=== PATIENT | female | born 1985 | race American Indian/Alaskan Native ===

== ENCOUNTER 2022-05-09 12:57 | Emergency (ER) | payer SELFPAY | END 2022-05-09 13:30 | disposition left against medical advice (07) | LOC: ED 12:57 | DX: F41.9 Anxiety disorder, unspecified (principal); Z53.21 Procedure and treatment not carried out due to patient leaving prior to being seen by health care provider ==

== ENCOUNTER 2022-05-10 02:11 | Emergency (ER) | payer SELFPAY ==
[2022-05-10] MEDS ORDERED: clonazePAM 0.5 MG TAB PO ONE (03:52)
--- NOTE | 2022-05-10 04:39 | Emergency Department Report ---
ED Anxiety HPI - General Chief Complaint: Anxiety Stated Complaint: MENTAL HEALTH EVAL Time Seen by Provider: 05/10/22 02:51 Source: patient Mode of arrival: Ambulatory - History of Present Illness Initial Comments: 36-year-old black female with a past medical history of scleroderma, Raynaud's disease, and asthma presents to the emergency department for evaluation of anxiety. She states that just prior to arrival, she started to feel very anxious and started to have dizziness, shortness of breath, chest pain, and the feeling of her heart racing. She states that she has had same symptoms several times over the last few days secondary to an unstable living arrangement. She denies SI and HI. She states that she has taken medications in the past for anxiety but does not have any medications at this time. MD Complaint: anxiety, heart racing, shortness of breath -: Sudden Symptoms: dyspnea, chest pain, palpitations Place: home Previous History of Same: Yes Severity: moderate Quality: constant Provoking factors: emotional stress Associated symptoms: chest pain, shortness of breath, palpitations. denies: diaphoresis, confusion, cough, fever/chills, headaches, anorexia, malaise, nausea/vomiting, rash, seizure, syncope, weakness - Related Data Home Medications: Previous Rx's Medication Instructions Recorded Last Taken Type clonazePAM [ Klonopin] 0.5 mg PO BID PRN #12 tab 05/10/22 Unknown Rx Allergies/Adverse Reactions: Allergies Allergy/AdvReac Type Severity Reaction Status Date / Time cortisone Allergy Unknown Verified 05/10/22 03:23 ED Review of Systems ROS: Stated complaint: MENTAL HEALTH EVAL Other details as noted in HPI Comment: All other systems reviewed and negative Constitutional: denies: chills, fever, weakness Respiratory: shortness of breath Cardiovascular: chest pain, palpitations. denies: dyspnea on exertion, orthopnea, edema, syncope, paroxysmal nocturnal dyspnea Gastrointestinal: denies: abdominal pain, nausea, vomiting Musculoskeletal: denies: back pain Psychiatric: anxiety. denies: homicidal thoughts, suicidal thoughts ED Past Medical Hx - Past Medical History Previous Medical History?: Yes Hx Asthma: Yes Additional medical history: scleroderma, raynaurd's decision - Surgical History Past Surgical History?: Yes Additional Surgical History: septoplasty - Social History Smoking Status: Current Every Day Smoker Substance Use Type: None - Medications Home Medications: Home Medications Medication Instructions Recorded Confirmed Last Taken Type clonazePAM [ Klonopin] 0.5 mg PO BID PRN #12 tab 05/10/22 Unknown Rx ED Physical Exam - General Limitations: No Limitations General appearance: alert, in no apparent distress - Head Head exam: Present: atraumatic, normocephalic - Eye Eye exam: Present: normal appearance. Absent: scleral icterus, conjunctival injection - Neck Neck exam: Present: normal inspection, full ROM. Absent: lymphadenopathy - Respiratory Respiratory exam: Present: normal lung sounds bilaterally. Absent: respiratory distress, wheezes, rales, rhonchi, stridor, chest wall tenderness - Cardiovascular Cardiovascular Exam: Present: regular rate, normal heart sounds - GI/Abdominal GI/Abdominal exam: Present: soft, normal bowel sounds. Absent: distended, tenderness, guarding, rigid - Extremities Exam Extremities exam: Present: normal inspection, normal capillary refill. Absent: pedal edema, joint swelling, calf tenderness - Back Exam Back exam: Present: normal inspection. Absent: vertebral tenderness - Neurological Exam Neurological exam: Present: alert, oriented X3, normal gait - Psychiatric Psychiatric exam: Present: normal affect, normal mood. Absent: anxious, homicidal ideation, suicidal ideation - Skin Skin exam: Present: warm, dry, intact, normal color ED Course Vital Signs 05/10/22 02:19 Temperature 97.8 F Pulse Rate 73 Blood Pressure 94/48 O2 Sat by Pulse 100 Oximetry - Reevaluation(s) Reevaluation #1: 05/10/22 04:37 Symptoms resolved. Patient states that she feels much better. ED Medical Decision Making - Medical Decision Making 36-year-old black female with a past medical history of scleroderma, Raynaud's disease, and asthma presents to the emergency department for evaluation of anxiety. She states that just prior to arrival, she started to feel very anxious and started to have dizziness, shortness of breath, chest pain, and the feeling of her heart racing. She states that she has had same symptoms several times over the last few days secondary to an unstable living arrangement. She denies SI and HI. She states that she has taken medications in the past for anxiety but does not have any medications at this time. Physical exam unremarkable. Symptoms completely resolved after medication and patient was noted to be resting comfortably. Patient continues to deny SI and HI. Patient discharged home with prescription for Klonopin to use as needed for anxiety and encouraged to follow-up with her primary care provider or mental health professional for further evaluation and management. She is advised to return to the emergency department for any concerning symptoms. She verbalizes understanding of and agreement with plan of care. Critical care attestation.: If time is entered above; I have spent that time in minutes in the direct care of this critically ill patient, excluding procedure time. ED Disposition Clinical Impression: Anxiety Disposition: 01 HOME / SELF CARE / HOMELESS Is pt being admited?: No Does the pt Need Aspirin: No Condition: Stable Instructions: Managing Anxiety, Adult Additional Instructions: Take medications as prescribed. Follow-up with primary care provider or mental health provider for additional for further evaluation and management. Return to the emergency department as needed. Prescriptions: clonazePAM [ Klonopin] 0.5 mg PO BID PRN #12 tab PRN Reason: Anxiety Referrals: CECELIA CASTELLANO MD [Staff Physician] - 3-5 Days DEBBIE RAI NP [Staff Physician] - 3-5 Days SHABBIR HORTA MD [Staff Physician] - 3-5 Days Time of Disposition: 04:39
[2022-05-10 07:48] VITALS: BP 108/62
== END 2022-05-10 07:46 | disposition home or self-care (01) ==
LOC: ED 02:11
DX: F41.9 Anxiety disorder, unspecified (principal); J45.909 Unspecified asthma, uncomplicated; F17.200 Nicotine dependence, unspecified, uncomplicated
CPT/HCPCS: 99282

== ENCOUNTER 2022-05-18 13:09 | Emergency (ER) | payer SELFPAY ==
--- NOTE | 2022-05-18 15:08 | Emergency Department Report ---
ED General Adult HPI - General Chief complaint: Recheck/Abnormal Lab/Rx Stated complaint: ANXIETY Source: patient Mode of arrival: Ambulatory Limitations: No Limitations - History of Present Illness Initial comments: Patient is a 36-year-old -[place] female with a history of anxiety and depression, Raynaud's disease, scleroderma and asthma presents to the ED with complaint of persistent jitteriness, worsening anxiety with chest tightness and unable to sleep for the last 2 days after she ran out of the medication that she usually takes for her anxiety. Patient states that she came to the ED about a week ago and was prescribed Klonopin 0.5 mg to be taken twice a day as needed for anxiety. Patient states that she is yet to find a local primary care physician to take care of her chronic medical conditions. Patient denies dizziness, syncope, nausea and vomiting, shortness of breath, fever and chills, abdominal pain, headache, chest pain or palpitations or cough. MD Complaint: Anxiety, ran out of medications -: month(s) (3) Location: head Radiation: non-radiation Severity scale (0 -10): 0 Consistency: intermittent Improves with: medication Worsens with: none Associated Symptoms: denies other symptoms, other (jittery, anxious, unable to sleep). denies: confusion, chest pain, cough, diaphoresis, fever/chills, headaches, malaise, nausea/vomiting, rash, seizure, syncope, weakness Treatments Prior to Arrival: none - Related Data Previous Rx's Medication Instructions Recorded Last Taken Type Albuterol Sulfate [Proventil Hfa] 1 - 2 puff IH Q4H PRN #1 inh 05/18/22 Unknown Rx Budesonide/Formoterol Fumarate 1 - 2 puff IH Q6H PRN #1 inh 05/18/22 Unknown Rx [Symbicort 160-4.5 Mcg Inhaler] clonazePAM [KlonoPIN] 0.5 mg PO BID PRN #12 tab 05/18/22 Unknown Rx Allergies Allergy/AdvReac Type Severity Reaction Status Date / Time cortisone Allergy Unknown Verified 05/10/22 03:23 ED Review of Systems ROS: Stated complaint: ANXIETY Other details as noted in HPI Constitutional: denies: chills, fever Eyes: denies: eye pain, eye discharge, vision change ENT: denies: ear pain, throat pain Respiratory: denies: cough, shortness of breath, wheezing Cardiovascular: denies: chest pain, palpitations Endocrine: no symptoms reported Gastrointestinal: denies: abdominal pain, nausea, diarrhea Genitourinary: denies: urgency, dysuria, discharge Musculoskeletal: denies: back pain, joint swelling, arthralgia Skin: denies: rash, lesions Neurological: denies: headache, weakness, paresthesias Psychiatric: anxiety. denies: depression, auditory hallucinations, visual hallucinations, homicidal thoughts, suicidal thoughts Hematological/Lymphatic: denies: easy bleeding, easy bruising ED Past Medical Hx - Past Medical History Hx Psychiatric Treatment: Yes (anxiety, depression) Hx Asthma: Yes Additional medical history: scleroderma, raynaurd's decision - Surgical History Additional Surgical History: septoplasty - Social History Smoking Status: Current Every Day Smoker Substance Use Type: None - Medications Home Medications: Home Medications Medication Instructions Recorded Confirmed Last Taken Type Albuterol Sulfate [Proventil Hfa] 1 - 2 puff IH Q4H PRN #1 inh 05/18/22 Unknown Rx Budesonide/Formoterol Fumarate 1 - 2 puff IH Q6H PRN #1 inh 05/18/22 Unknown Rx [Symbicort 160-4.5 Mcg Inhaler] clonazePAM [KlonoPIN] 0.5 mg PO BID PRN #12 tab 05/18/22 Unknown Rx ED Physical Exam - General Limitations: No Limitations General appearance: alert, in no apparent distress, anxious - Head Head exam: Present: atraumatic, normocephalic - Eye Eye exam: Present: normal appearance, PERRL, EOMI Pupils: Present: normal accommodation - ENT ENT exam: Present: normal exam, normal orophraynx, mucous membranes moist, TM's normal bilaterally, normal external ear exam - Neck Neck exam: Present: normal inspection, full ROM. Absent: tenderness - Respiratory Respiratory exam: Present: normal lung sounds bilaterally. Absent: respiratory distress, wheezes, rales, stridor, chest wall tenderness, accessory muscle use, decreased breath sounds, prolonged expiratory - Cardiovascular Cardiovascular Exam: Present: regular rate, normal rhythm, normal heart sounds. Absent: systolic murmur, diastolic murmur, rubs, gallop - GI/Abdominal GI/Abdominal exam: Present: soft, normal bowel sounds. Absent: tenderness, guarding, hyperactive bowel sounds, hypoactive bowel sounds, organomegaly - Extremities Exam Extremities exam: Present: normal inspection, full ROM, normal capillary refill - Back Exam Back exam: Present: normal inspection, full ROM. Absent: tenderness, CVA tenderness (R), CVA tenderness (L), muscle spasm, paraspinal tenderness, vertebral tenderness - Neurological Exam Neurological exam: Present: alert, oriented X3, CN II-XII intact, normal gait, reflexes normal - Psychiatric Psychiatric exam: Present: normal affect, normal mood, anxious - Skin Skin exam: Present: warm, dry, intact, normal color. Absent: rash ED Course Vital Signs 05/18/22 13:23 Temperature 98.0 F Pulse Rate 77 Respiratory 16 Rate Blood Pressure 120/76 O2 Sat by Pulse 98 Oximetry ED Medical Decision Making - Medical Decision Making This is a 36-year-old -[place] female with a history of anxiety and depression, Raynaud's disease, scleroderma and asthma presents to the ED wit complaint of persistent jitteriness, worsening anxiety with chest tightness and unable to sleep for the last 2 days after she ran out of the medication that she usually takes for her anxiety. Patient states that she came to the ED about a week ago and was prescribed Klonopin 0.5 mg to be taken twice a day as needed for anxiety. Patient states that she is yet to find a local primary care physician to take care of her chronic medical conditions. In the ED, patient is alert and oriented x3 and is not in any distress. Patient is hemodynamically stable. Based on the history and physical exam findings, the patient was discharged home on medications and advised to follow-up with primary care physician in 5 to 7 days for reevaluation or return to the ED immediately if symptoms get worse. - Differential Diagnosis Anxiety; asthma; depression; Critical care attestation.: If time is entered above; I have spent that time in minutes in the direct care of this critically ill patient, excluding procedure time. ED Disposition Clinical Impression: Anxiety as acute reaction to exceptional stress, Medication refill Chronic asthma Qualifiers: Asthma severity: unspecified severity Asthma persistence: unspecified Asthma complication type: unspecified Qualified Code(s): J45.909 - Unspecified asthma, uncomplicated Disposition: HOME / SELF CARE / HOMELESS Is pt being admited?: No Does the pt Need Aspirin: No Condition: Stable Instructions: Generalized Anxiety Disorder, Adult, Asthma (ED), Asthma, Adult, [id number] Additional Instructions: Take medication as advised, drink plenty of fluids and follow-up with your primary care physician in 7 to 10 days for reevaluation. Return to the ED immediately if symptoms get worse Prescriptions: clonazePAM [KlonoPIN] 0.5 mg PO BID PRN #12 tab PRN Reason: Anxiety Albuterol Sulfate [Proventil Hfa] 1 - 2 puff IH Q4H PRN #1 inh PRN Reason: Shortness Of Breath Budesonide/Formoterol Fumarate [Symbicort 160-4.5 Mcg Inhaler] 1 - 2 puff IH Q6H PRN #1 inh PRN Reason: Shortness Of Breath Referrals: SHABBIR HORTA MD [Staff Physician] - 3-5 Days [facility] [Outside] - 3-5 Days Time of Disposition: 15:12 Print Language: GUAMANIAN
[2022-05-18 16:28] VITALS: BP 114/80
== END 2022-05-18 16:26 | disposition home or self-care (01) ==
LOC: ED 13:09
DX: F41.1 Generalized anxiety disorder (principal); F43.0 Acute stress reaction; Z76.0 Encounter for issue of repeat prescription; J45.909 Unspecified asthma, uncomplicated; Z91.09 Other allergy status, other than to drugs and biological substances; F17.200 Nicotine dependence, unspecified, uncomplicated; Z79.899 Other long term (current) drug therapy
CPT/HCPCS: 99282

== ENCOUNTER 2022-05-24 14:42 | Emergency (ER) | payer SELFPAY ==
[2022-05-24 15:15] VITALS: BP 142/94
== END 2022-05-25 04:48 ==
LOC: ED 14:42
DX: F41.9 Anxiety disorder, unspecified (principal); Z53.21 Procedure and treatment not carried out due to patient leaving prior to being seen by health care provider

== ENCOUNTER 2022-05-27 09:04 | Emergency (ER) | payer BC ==
[2022-05-27] MEDS ORDERED: IBUPROFEN 800 MG TAB PO ONE (12:08)
[2022-05-27] MEDS ORDERED: BENZONATATE 100 MG CAP PO ONE (12:08)
--- NOTE | 2022-05-27 12:56 | XRay Report ---
CHEST PA AND LATERAL VIEWS INDICATION: cough. COMPARISON: None. FINDINGS: Support devices: None. Heart: Within normal limits. Lungs/Pleura: No acute pulmonary or pleural findings. IMPRESSION: 1. No acute findings. Signer Name: Luis Gaytan MD Signed: 05/27/2022 12:52 PM Workstation Name: [id number]
--- NOTE | 2022-05-27 13:31 | Emergency Department Report ---
- General Chief Complaint: Anxiety Stated Complaint: ANXIETY/SINUS Time Seen by Provider: 05/27/22 11:51 Source: patient Mode of arrival: Ambulatory Limitations: No Limitations - History of Present Illness Initial Comments: This is a 36-year-old female nontoxic, well nourished in appearance, no acute signs of distress presents to the ED with c/o of productive cough, sinus pressur e, rhinorrhea, nasal congestion x several days. Patient describes productive cough as yellow mucus production. Patient denies any sick contacts. Patient denies any recent travels, long car, recent hospital stays. Patient denies any calf pain or calf tenderness. Patient denies any chest pain, short of breath, fever, chills, nausea, vomiting, hemoptysis, numbness, tingling, headache or stiff neck. Patient stated allergies to cortisone. Patient also is requesting for Klonopin refill medication for her anxiety. Patient stated she has a few left but is requesting for a refill. Patient othe rwise denies any symptoms of psychiatric such as anxiety, depression SI or HI. MD Complaint: cough, rhinorrhea, nasal congestion, sinus pain -: days(s) Severity: mild Severity scale (0 -10): 3 Quality: aching Consistency: constant Improves With: nothing Worsens With: nothing Associated Symptoms: rhinorrhea, nasal congestion, cough. denies: fever, chills, myalgias, diaphoresis, headache, sore throat, stiff neck, chest pain, abdominal pain, nausea, vomiting, diarrhea, dysuria, confusion, right sweats, weight loss, epistaxis, hoarseness, ear pain Treatments Prior to Arrival: none - Related Data Previous Rx's Medication Instructions Recorded Last Taken Type Albuterol Sulfate [Proventil Hfa] 1 - 2 puff IH Q4H PRN #1 inh 05/18/22 Unknown Rx Budesonide/Formoterol Fumarate 1 - 2 puff IH Q6H PRN #1 inh 05/18/22 Unknown Rx [Symbicort 160-4.5 Mcg Inhaler] clonazePAM [KlonoPIN] 0.5 mg PO BID PRN #12 tab 05/18/22 Unknown Rx Amoxicillin/K Clav Tab [Augmentin 1 tab PO Q12HR #20 tab 05/27/22 Unknown Rx 875 mg] Allergies Allergy/AdvReac Type Severity Reaction Status Date / Time cortisone Allergy Unknown Verified 05/10/22 03:23 ED Review of Systems ROS: Stated complaint: ANXIETY/SINUS Other details as noted in HPI Comment: All other systems reviewed and negative Constitutional: denies: chills, fever Eyes: denies: eye pain, eye discharge, vision change ENT: congestion. denies: ear pain, throat pain Respiratory: cough. denies: orthopnea, shortness of breath, SOB with exertion, SOB at rest, stridor, wheezing Cardiovascular: denies: chest pain, palpitations Endocrine: no symptoms reported Gastrointestinal: denies: abdominal pain, nausea, diarrhea Genitourinary: denies: urgency, dysuria, discharge Musculoskeletal: denies: back pain, joint swelling, arthralgia Skin: denies: rash, lesions Neurological: denies: headache, weakness, paresthesias Psychiatric: denies: anxiety, depression, auditory hallucinations, visual hallucinations, homicidal thoughts, suicidal thoughts Hematological/Lymphatic: denies: easy bleeding, easy bruising ED Past Medical Hx - Past Medical History Previous Medical History?: Yes Hx Psychiatric Treatment: Yes (anxiety, depression) Hx Asthma: Yes Additional medical history: scleroderma, raynaurd's decision - Surgical History Past Surgical History?: Yes Additional Surgical History: septoplasty - Social History Smoking Status: Never Smoker - Medications Home Medications: Home Medications Medication Instructions Recorded Confirmed Last Taken Type Albuterol Sulfate [Proventil Hfa] 1 - 2 puff IH Q4H PRN #1 inh 05/18/22 Unknown Rx Budesonide/Formoterol Fumarate 1 - 2 puff IH Q6H PRN #1 inh 05/18/22 Unknown Rx [Symbicort 160-4.5 Mcg Inhaler] clonazePAM [KlonoPIN] 0.5 mg PO BID PRN #12 tab 05/18/22 Unknown Rx Amoxicillin/K Clav Tab [Augmentin 1 tab PO Q12HR #20 tab 05/27/22 Unknown Rx 875 mg] ED Physical Exam - General Limitations: No Limitations General appearance: alert, in no apparent distress - Head Head exam: Present: atraumatic, normocephalic - Eye Eye exam: Present: normal appearance - ENT ENT exam: Present: normal exam, normal orophraynx - Neck Neck exam: Present: normal inspection, full ROM. Absent: tenderness, meningismus, lymphadenopathy - Respiratory Respiratory exam: Present: normal lung sounds bilaterally. Absent: respiratory distress, wheezes, rales, rhonchi, stridor, chest wall tenderness, accessory muscle use, decreased breath sounds, prolonged expiratory - Cardiovascular Cardiovascular Exam: Present: regular rate, normal rhythm, normal heart sounds. Absent: bradycardia, tachycardia, irregular rhythm, systolic murmur, diastolic murmur, rubs, gallop - Extremities Exam Extremities exam: Present: full ROM - Back Exam Back exam: Present: full ROM - Neurological Exam Neurological exam: Present: alert, oriented X3, normal gait - Psychiatric Psychiatric exam: Present: normal affect, normal mood. Absent: depressed, agitated, anxious, flat affect, manic, homicidal ideation, suicidal ideation - Skin Skin exam: Present: warm, dry, intact, normal color. Absent: rash - Other Other exam information: Positive frontal sinus tenderness ED Course Vital Signs 05/27/22 05/27/22 09:10 12:30 Temperature 97.9 F Pulse Rate 75 Respiratory 20 Rate Blood Pressure 146/83 [Right] O2 Sat by Pulse 99 98 Oximetry - Reevaluation(s) Reevaluation #1: 05/27/22 13:40 Patient is speaking in full sentences with no signs of distress noted. ED Medical Decision Making - Radiology Data [facility] [address] [place] [address] XRay Report Signed Patient: CORWIN BELLAMY MR#: [id number] 55 : 1985 Acct:[id number] Age/Sex: 36 / F ADM Date: 05/27/22 Loc: ED Attending Dr: Ordering Physician: AURELIO DU NP Date of Service: 05/27/22 Procedure(s): XR chest routine 2V Accession Number(s): [id number] cc: AURELIO DU NP Fluoro Time In Minutes: CHEST PA AND LATERAL VIEWS INDICATION: cough. COMPARISON: None. FINDINGS: Support devices: None. Heart: Within normal limits. Lungs/Pleura: No acute pulmonary or pleural findings. IMPRESSION: 1. No acute findings. Signer Name: Luis Gaytan MD Signed: 05/27/2022 12:52 PM Workstation Name: [id number] Transcribed By: LYRIC Dictated By: Luis Gaytan MD Electronically Authenticated By: Luis Gaytan MD Signed Date/Time: 05/27/22 1252 DD/ 1251 TD/TT: - Medical Decision Making This is a 36-year-old female that presents with sinusitis. Patient is stable and was examined by me. Chest x-ray has been obtained and dictated by radiologist with normal exam. Patient is notified of x-ray results with no que stions noted. Patient does not meet clinical concerns of COVID-19 but patient was instructed and educated on signs and symptoms and to self quarantine and seek medical attention as soon as possible if symptoms does occur. Patient be discharged with Augmentin. Patient was instructed to increase hydration, rest and take Motrin for fever episodes. Patient received motrin and tesslone perrls in the ED. Vitals stable. Patient is nonfebrile and normal heart rate. Patient was instructed Follow-up with a primary care doctor in 3-5 days or if symptoms worsen and continue return to emergency room as soon as possible. At time time of discharge, the patient does not seem toxic or ill in appearance. No acute signs of distress noted. Patient agrees to discharge treatment plan of care. No further questions noted by the patient.nt. Critical care attestation.: If time is entered above; I have spent that time in minutes in the direct care of this critically ill patient, excluding procedure time. ED Disposition Clinical Impression: Sinusitis Qualifiers: Sinusitis location: maxillary Chronicity: acute Recurrence: non-recurrent Qualified Code(s): J01.00 - Acute maxillary sinusitis, unspecified Disposition: HOME / SELF CARE / HOMELESS Is pt being admited?: No Does the pt Need Aspirin: No Condition: Stable Instructions: Sinusitis, Adult, [id number] Additional Instructions: Follow-up with a primary care doctor in 3-5 days or if symptoms worsen and continue return to emergency room as soon as possible. Prescriptions: Amoxicillin/K Clav Tab [Augmentin 875 mg] 1 tab PO Q12HR #20 tab Referrals: PRIMARY MD EUSEBIA [Referring] - 3-5 Days SHABBIR HORTA MD [Staff Physician] - 3-5 Days Time of Disposition: 13:47
[2022-05-27 14:20] VITALS: BP 145/78
== END 2022-05-27 14:34 | disposition home or self-care (01) ==
LOC: ED 09:04
DX: J01.90 Acute sinusitis, unspecified (principal); J45.909 Unspecified asthma, uncomplicated; Z88.8 Allergy status to other drugs, medicaments and biological substances
CPT/HCPCS: 71046; 99284

== ENCOUNTER 2022-06-04 22:16 | Emergency (ER) | payer BC, MEDICAID ==
[2022-06-05 08:36] LABS: Basophils % (Auto) 0.7 % (0.0-1.8); Eosinophils # (Auto) 0.1 K/mm3 (0.0-0.4); Eosinophils % (Auto) 3.3 % (0.0-4.3); Hematocrit 39.3 % (30.3-42.9); Hemoglobin 12.9 gm/dl (10.1-14.3); Lymphocytes # (Auto) 1.6 K/mm3 (1.2-5.4); Lymphocytes % (Auto) 44.9 % (13.4-35.0); Mean Corpuscular HGB Conc 33 % (30-34); Mean Corpuscular Volume 103 fl (79-97); Monocytes # (Auto) 0.4 K/mm3 (0.0-0.8); Monocytes % (Auto) 11.2 % (0.0-7.3); Platelet Count 276 K/mm3 (140-440); Red Blood Count 3.83 M/mm3 (3.65-5.03); Red Cell Distribution Width 16.7 % (13.2-15.2)
[2022-06-05 09:03] LABS: Alanine Aminotransferase 13 units/L (7-56); Albumin 3.9 g/dL (3.9-5); Blood Urea Nitrogen 12 mg/dL (7-17); Calcium 9.2 mg/dL (8.4-10.2); Hemolysis Index 5
[2022-06-05 09:07] LABS: BUN/Creatinine Ratio 17
[2022-06-05 15:56] VITALS: BP 134/85
[2022-06-05] MEDS ORDERED: ALUM-MAG HYDROXIDE-SIMETHICONE 200-200-20MG/5ML ORAL LIQD 30 ML PO ONE (18:43)
[2022-06-05] MEDS ORDERED: DICYCLOMINE 10 MG/5 ML ORAL LIQD PO ONE (18:44)
[2022-06-05] MEDS ORDERED: LIDOCAINE VISCOUS 2% 15 ML ORAL LIQD PO ONE (18:44)
[2022-06-05 18:59] LABS: Bilirubin,Urine NEG (Negative); Blood,Urine SM (Negative); Color,Urine Yellow (Yellow); Protein,Urine <15 mg/dL mg/dL (Negative); Urobilinogen,Urine < 2.0 mg/dL (<2.0)
[2022-06-05 19:13] LABS: HCG Qualitative,Urine Negative (Negative)
[2022-06-05 19:18] LABS: Mucus,Urine FEW /HPF
[2022-06-05] MEDS ORDERED: POTASSIUM CHLORIDE ER 20 MEQ TAB PO ONE (19:24)
[2022-06-05] MEDS ORDERED: oxyCODONE /ACETAMINOPHEN 5-325MG TAB PO ONE (19:24)
--- NOTE | 2022-06-05 19:43 | Emergency Department Report ---
ED Abdominal Pain HPI - General Chief Complaint: Abdominal Pain Stated Complaint: BODY PAIN Time Seen by Provider: 06/05/22 18:43 Source: patient Mode of arrival: Ambulatory Limitations: No Limitations - History of Present Illness Initial Comments: 36-year-old black female with a past medical history of asthma presents to the emergency department for evaluation of 3-day history of abdominal pain with intermittent nausea and generalized body aches for 1 week. She denies vomiting, diarrhea, fever, dysuria. She states that abdominal pain has been in her epigastric area mostly but at times she does have lower abdominal pain that radiates to her back. She states that pain is intermittent and 8 out of 10. She states that she has not taken any medication for her symptoms. Patient is also requesting a refill of her albuterol, Flonase, and Klonopin. MD Complaint: abdominal pain -: Gradual, days(s) (3-4) Location: LLQ, RLQ, epigastric, suprapubic Radiation: none Migration to: no migration Severity scale (0 -10): 8 Quality: aching Consistency: intermittent Associated Symptoms: nausea. denies: vomiting, diarrhea, fever, chills, dysuria, hematemesis, hematochezia, melena, hematuria, anorexia, syncope - Related Data LMP Date: 06/04/22 Previous Rx's Medication Instructions Recorded Last Taken Type Albuterol Sulfate [Proventil Hfa] 1 - 2 puff IH Q4H PRN #1 inh 05/18/22 Unknown Rx Budesonide/Formoterol Fumarate 1 - 2 puff IH Q6H PRN #1 inh 05/18/22 Unknown Rx [Symbicort 160-4.5 Mcg Inhaler] clonazePAM [KlonoPIN] 0.5 mg PO BID PRN #12 tab 05/18/22 Unknown Rx Amoxicillin/K Clav Tab [Augmentin 1 tab PO Q12HR #20 tab 05/27/22 Unknown Rx 875 mg] Albuterol Mdi (or & Nicu Only) 2 puff IH QID PRN #8.5 gram 06/05/22 Unknown Rx [ProAir HFA Inhaler] Fluticasone [Flonase] 1 spray NS QDAY #1 bottle 06/05/22 Unknown Rx Ondansetron [Zofran Odt] 4 mg PO Q8HR PRN #12 tab.rapdis 07/12/22 Unknown Rx clonazePAM [ Klonopin] 0.5 mg PO BID PRN #12 tab 06/05/22 Unknown Rx Allergies Allergy/AdvReac Type Severity Reaction Status Date / Time cortisone Allergy Unknown Verified 05/10/22 03:23 ED Review of Systems ROS: Stated complaint: BODY PAIN Other details as noted in HPI Comment: All other systems reviewed and negative Constitutional: denies: chills, fever, malaise, weakness ENT: congestion Respiratory: cough. denies: shortness of breath, SOB with exertion, SOB at rest, stridor, wheezing Cardiovascular: denies: chest pain, palpitations, dyspnea on exertion, orthopnea, edema, syncope, paroxysmal nocturnal dyspnea Gastrointestinal: abdominal pain, nausea. denies: vomiting, diarrhea, edmond temesis, melena, hematochezia Genitourinary: denies: urgency, dysuria, frequency, hematuria, discharge, abnormal menses Musculoskeletal: back pain Skin: denies: rash, lesions Neurological: headache. denies: weakness, numbness, paresthesias, confusion, abnormal gait Psychiatric: denies: anxiety, depression, auditory hallucinations, visual hallucinations, homicidal thoughts, suicidal thoughts ED Past Medical Hx - Past Medical History Hx Psychiatric Treatment: Yes (anxiety, depression) Hx Asthma: Yes Additional medical history: scleroderma, raynaurd's decision - Surgical History Additional Surgical History: septoplasty - Social History Smoking Status: Never Smoker - Medications Home Medications: Home Medications Medication Instructions Recorded Confirmed Last Taken Type Albuterol Sulfate [Proventil Hfa] 1 - 2 puff IH Q4H PRN #1 inh 05/18/22 Unknown Rx Budesonide/Formoterol Fumarate 1 - 2 puff IH Q6H PRN #1 inh 05/18/22 Unknown Rx [Symbicort 160-4.5 Mcg Inhaler] clonazePAM [KlonoPIN] 0.5 mg PO BID PRN #12 tab 05/18/22 Unknown Rx Amoxicillin/K Clav Tab [Augmentin 1 tab PO Q12HR #20 tab 05/27/22 Unknown Rx 875 mg] Albuterol Mdi (or & Nicu Only) 2 puff IH QID PRN #8.5 gram 06/05/22 Unknown Rx [ProAir HFA Inhaler] Fluticasone [Flonase] 1 spray NS QDAY #1 bottle 06/05/22 Unknown Rx Ondansetron [Zofran Odt] 4 mg PO Q8HR PRN #12 tab.rapdis 06/05/22 Unknown Rx clonazePAM [ Klonopin] 0.5 mg PO BID PRN #12 tab 06/05/22 Unknown Rx ED Physical Exam - General Limitations: No Limitations General appearance: alert, in no apparent distress - Head Head exam: Present: atraumatic, normocephalic - Eye Eye exam: Present: normal appearance. Absent: scleral icterus, conjunctival injection, periorbital swelling, periorbital tenderness - ENT ENT exam: Present: normal exam (Bilateral nasal mucosal edema), normal orophraynx (Erythema noted to posterior oropharynx) - Neck Neck exam: Present: normal inspection, full ROM. Absent: tenderness, lymphadenopathy - Respiratory Respiratory exam: Present: normal lung sounds bilaterally. Absent: respiratory distress, wheezes, rales, rhonchi, stridor, chest wall tenderness - Cardiovascular Cardiovascular Exam: Present: bradycardia, normal heart sounds - GI/Abdominal GI/Abdominal exam: Present: soft, normal bowel sounds. Absent: distended, tenderness, guarding, rebound, rigid - Extremities Exam Extremities exam: Present: normal inspection, full ROM, normal capillary refill. Absent: tenderness, pedal edema, joint swelling, calf tenderness - Back Exam Back exam: Present: normal inspection. Absent: CVA tenderness (R), CVA tenderness (L), paraspinal tenderness, vertebral tenderness - Neurological Exam Neurological exam: Present: alert, oriented X3, CN II-XII intact, normal gait - Psychiatric Psychiatric exam: Present: normal affect, normal mood - Skin Skin exam: Present: warm, dry, intact, normal color ED Course Vital Signs 06/04/22 06/05/22 06/05/22 22:27 15:54 19:01 Temperature 97.9 F 98.0 F Pulse Rate 54 L 49 L Respiratory 18 20 Rate Blood Pressure 151/96 134/85 O2 Sat by Pulse 99 97 98 Oximetry ED Medical Decision Making - Lab Data Result diagrams: 06/05/22 08:14 06/05/22 08:14 - Medical Decision Making 36-year-old black female with a past medical history of asthma presents to the emergency department for evaluation of 3-day history of abdominal pain with intermittent nausea and generalized body aches for 1 week. She denies vomiting, diarrhea, fever, dysuria. She states that abdominal pain has been in her epigastric area mostly but at times she does have lower abdominal pain that radiates to her back. She states that pain is intermittent and 8 out of 10. She states that she has not taken any medication for her symptoms. Patient is also requesting a refill of her albuterol, Flonase, and Klonopin. Physical exam unremarkable. Noted to have hypokalemia but labs and urine otherwise unremarkable. Patient was treated with 40 mEq of potassium chloride p.o. x1 along with GI cocktail which improved epigastric pain. She was discharged home with Zofran to use as needed for nausea along with refill of Flonase, Adderall, and this. She is advised to take medications as prescribed and follow-up with her primary care provider if worsening symptoms. She is advised to return to the emergency department for any concerning symptoms. She verbalizes understanding of and agreement with plan of care. Critical care attestation.: If time is entered above; I have spent that time in minutes in the direct care of this critically ill patient, excluding procedure time. ED Disposition Clinical Impression: Myalgia, Medication refill, Hypokalemia Abdominal pain Qualifiers: Abdominal location: epigastric Qualified Code(s): R10.13 - Epigastric pain Disposition: 01 HOME / SELF CARE / HOMELESS Is pt being admited?: No Does the pt Need Aspirin: No Condition: Stable Instructions: Hypokalemia, Abdominal Pain, Adult, [place]-ma-Udu[place], Abdominal Pain (ED) Additional Instructions: Take medications as prescribed and follow up with your primary care provider if no improvement or worsening symptoms. Follow up with in Ed as needed. Prescriptions: Fluticasone [Flonase] 1 spray NS QDAY #1 bottle clonazePAM [ Klonopin] 0.5 mg PO BID PRN #12 tab PRN Reason: Anxiety Albuterol Mdi (or & Nicu Only) [ProAir HFA Inhaler] 2 puff IH QID PRN #8.5 gram PRN Reason: Shortness Of Breath Ondansetron [Zofran Odt] 4 mg PO Q8HR PRN #12 tab.rapdis PRN Reason: Nausea And Vomiting Referrals: PRIMARY CARE, [Primary Care Provider] - 3-5 Days Forms: Work/School Release Form(ED) Time of Disposition: 19:48
== END 2022-06-05 20:23 | disposition home or self-care (01) ==
LOC: ED 22:16
DX: R10.13 Epigastric pain (principal); M79.10 Myalgia, unspecified site; E87.6 Hypokalemia; Z76.0 Encounter for issue of repeat prescription; J45.909 Unspecified asthma, uncomplicated; Z79.899 Other long term (current) drug therapy
CPT/HCPCS: 36415; 80053; 81001; 81025; 83690; 85025; 99283

== ENCOUNTER 2022-06-22 12:35 | Emergency (ER) | payer MEDICAID ==
[2022-06-22] MEDS ORDERED: HYDROcodone/ACETAMINOPHEN 5-325 MG TAB PO STA (22:15)
--- NOTE | 2022-06-22 22:27 | Emergency Department Report ---
ED General Adult HPI - General Chief complaint: Upper Respiratory Infection Stated complaint: MEDICAL CLEARANCE/SINUS INFECTION Time Seen by Provider: 06/22/22 21:07 Source: patient Mode of arrival: Ambulatory Limitations: No Limitations - History of Present Illness Initial comments: 36-year-old [place] female with past medical history of asthma, anxiety, recurrent sinusitis which she has been seen in the emergency department multiple visits this year for the same complaint. She been treated with Augmentin, possible asthma cocktail including Symbicort Flonase albuterol to manage her symptoms but continues to return to emergency department requesting pain medication, Klonopin as needed medicine behavior. -: Gradual Radiation: non-radiation Severity scale (0 -10): 8 Quality: aching, dull Consistency: constant Improves with: none Worsens with: none Associated Symptoms: denies other symptoms Treatments Prior to Arrival: none - Related Data Previous Rx's Medication Instructions Recorded Last Taken Type Albuterol Sulfate [Proventil Hfa] 1 - 2 puff IH Q4H PRN #1 inh 05/18/22 Unknown Rx Budesonide/Formoterol Fumarate 1 - 2 puff IH Q6H PRN #1 inh 05/18/22 Unknown Rx [Symbicort 160-4.5 Mcg Inhaler] clonazePAM [KlonoPIN] 0.5 mg PO BID PRN #12 tab 05/18/22 Unknown Rx Albuterol Mdi (or & Nicu Only) 2 puff IH QID PRN #8.5 gram 06/05/22 Unknown Rx [ProAir HFA Inhaler] Fluticasone [Flonase] 1 spray NS QDAY #1 bottle 06/05/22 Unknown Rx Ondansetron [Zofran Odt] 4 mg PO Q8HR PRN #12 tab.rapdis 06/05/22 Unknown Rx Amoxicillin/K Clav Tab [Augmentin 1 tab PO Q12HR #20 tab 06/22/22 Unknown Rx 875MG TAB] Ketorolac [Toradol] 10 mg PO Q6H PRN #15 tablet 06/22/22 Unknown Rx Montelukast [Singulair] 10 mg PO QPM #14 tablet 06/22/22 Unknown Rx predniSONE [Deltasone] 50 mg PO QDAY #5 tab 06/22/22 Unknown Rx Allergies Allergy/AdvReac Type Severity Reaction Status Date / Time cortisone Allergy Unknown Verified 05/10/22 03:23 ED Review of Systems ROS: Stated complaint: MEDICAL CLEARANCE/SINUS INFECTION Other details as noted in HPI Comment: All other systems reviewed and negative ED Past Medical Hx - Past Medical History Hx Psychiatric Treatment: Yes (anxiety, depression) Hx Asthma: Yes Additional medical history: scleroderma, raynaurd's decision - Surgical History Additional Surgical History: septoplasty - Social History Smoking Status: Unknown if ever smoked Substance Use Type: None - Medications Home Medications: Home Medications Medication Instructions Recorded Confirmed Last Taken Type Albuterol Sulfate [Proventil Hfa] 1 - 2 puff IH Q4H PRN #1 inh 05/18/22 Unknown Rx Budesonide/Formoterol Fumarate 1 - 2 puff IH Q6H PRN #1 inh 05/18/22 Unknown Rx [Symbicort 160-4.5 Mcg Inhaler] clonazePAM [KlonoPIN] 0.5 mg PO BID PRN #12 tab 05/18/22 Unknown Rx Albuterol Mdi (or & Nicu Only) 2 puff IH QID PRN #8.5 gram 06/05/22 Unknown Rx [ProAir HFA Inhaler] Fluticasone [Flonase] 1 spray NS QDAY #1 bottle 06/05/22 Unknown Rx Ondansetron [Zofran Odt] 4 mg PO Q8HR PRN #12 tab.rapdis 06/05/22 Unknown Rx Amoxicillin/K Clav Tab [Augmentin 1 tab PO Q12HR #20 tab 06/22/22 Unknown Rx 875MG TAB] Ketorolac [Toradol] 10 mg PO Q6H PRN #15 tablet 06/22/22 Unknown Rx Montelukast [Singulair] 10 mg PO QPM #14 tablet 06/22/22 Unknown Rx predniSONE [Deltasone] 50 mg PO QDAY #5 tab 06/22/22 Unknown Rx ED Physical Exam - General Limitations: No Limitations General appearance: alert, in no apparent distress, other (No acute distress good mood speaking in full sentences patient lives at [facility] and maintain normal breathing and saturation) - Head Head exam: Present: atraumatic, normocephalic - Eye Eye exam: Present: normal appearance, PERRL, EOMI Pupils: Present: normal accommodation - ENT ENT exam: Present: normal exam, normal orophraynx, mucous membranes moist, other (Injected nasal mucosa left greater than right with some swelling present. Yellowish drainage present on the posterior pharynx. Tongue and uvula midline. Airway patent) - Neck Neck exam: Present: normal inspection, meningismus, full ROM - Respiratory Respiratory exam: Present: normal lung sounds bilaterally. Absent: respiratory distress - Cardiovascular Cardiovascular Exam: Present: regular rate, normal rhythm. Absent: systolic murmur, diastolic murmur, rubs, gallop - GI/Abdominal GI/Abdominal exam: Present: soft, normal bowel sounds - Extremities Exam Extremities exam: Present: normal inspection, normal capillary refill - Back Exam Back exam: Present: normal inspection. Absent: CVA tenderness (R), CVA tenderness (L) - Neurological Exam Neurological exam: Present: alert, oriented X3, CN II-XII intact - Psychiatric Psychiatric exam: Present: normal affect, normal mood - Skin Skin exam: Present: warm, dry, intact, normal color. Absent: rash ED Course Vital Signs 06/22/22 12:38 Temperature 98.1 F Pulse Rate 80 Respiratory 18 Rate Blood Pressure 149/88 [Left] O2 Sat by Pulse 99 Oximetry ED Medical Decision Making - Medical Decision Making [id number] female returns my department requesting chronic [place] refill of all of her asthma medication which she just received here with nearly 2 weeks ago. States her asthma is under control and in fact has been for the reason of this is requiring new new refills of asthma medication he is 1 day out that her symptoms are well controlled \ Critical care attestation.: If time is entered above; I have spent that time in minutes in the direct care of this critically ill patient, excluding procedure time. ED Disposition Clinical Impression: Asthma, chronic, Chronic sinusitis Disposition: HOME / SELF CARE / HOMELESS Is pt being admited?: No Does the pt Need Aspirin: No Condition: Stable Instructions: Asthma, Adult, Bronchospasm, Adult, Cough, Adult, [id number], Form - Asthma Action Plan, Adult, Sinus Headache, Peak Flow Meter, Managing Anxiety, Adult, Asthma Attack Prevention, Adult, Asthma (ED) Prescriptions: Amoxicillin/K Clav Tab [Augmentin 875MG TAB] 1 tab PO Q12HR #20 tab predniSONE [Deltasone] 50 mg PO QDAY #5 tab Montelukast [Singulair] 10 mg PO QPM #14 tablet Ketorolac [Toradol] 10 mg PO Q6H PRN #15 tablet PRN Reason: Pain Referrals: PRIMARY CARE, [Primary Care Provider] - 3-5 Days EDIL LOGAN MD [Staff Physician] - 3-5 Days
[2022-06-22 22:57] VITALS: BP 156/91
== END 2022-06-22 22:57 | disposition home or self-care (01) ==
LOC: ED 12:35
DX: J45.909 Unspecified asthma, uncomplicated (principal); J32.9 Chronic sinusitis, unspecified; F41.9 Anxiety disorder, unspecified; Z91.09 Other allergy status, other than to drugs and biological substances; Z79.899 Other long term (current) drug therapy
CPT/HCPCS: 99282

== ENCOUNTER 2022-06-23 01:50 | Emergency (ER) | payer MEDICAID ==
[2022-06-23 02:02] VITALS: BP 143/78
== END 2022-06-23 22:50 | disposition left against medical advice (07) ==
LOC: ED 01:50
DX: L98.8 Other specified disorders of the skin and subcutaneous tissue (principal); Z53.21 Procedure and treatment not carried out due to patient leaving prior to being seen by health care provider

== ENCOUNTER 2022-06-24 21:22 | Emergency (ER) | payer MEDICAID ==
[2022-06-24 22:57] VITALS: BP 138/87
--- NOTE | 2022-06-25 09:48 | Electrocardiograph Report ---
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
== END 2022-06-24 23:41 | disposition left against medical advice (07) ==
LOC: ED 21:22
DX: R07.89 Other chest pain (principal); Z53.21 Procedure and treatment not carried out due to patient leaving prior to being seen by health care provider
CPT/HCPCS: 93005

== ENCOUNTER 2022-06-26 07:21 | Emergency (ER) | payer SELFPAY ==
[2022-06-26 08:05] VITALS: BP 91/54
[2022-06-26 08:29] LABS: Basophils # (Auto) 0.1 K/mm3 (0.0-0.1); Basophils % (Auto) 1.3 % (0.0-1.8); Hematocrit 37.9 % (30.3-42.9); Hemoglobin 12.4 gm/dl (10.1-14.3); Lymphocytes % (Auto) 40.1 % (13.4-35.0); Mean Corpuscular HGB Conc 33 % (30-34); Mean Corpuscular Volume 101 fl (79-97); Monocytes # (Auto) 0.5 K/mm3 (0.0-0.8); Monocytes % (Auto) 10.4 % (0.0-7.3); Platelet Count 293 K/mm3 (140-440); Red Blood Count 3.77 M/mm3 (3.65-5.03); Red Cell Distribution Width 15.1 % (13.2-15.2)
--- NOTE | 2022-06-26 08:38 | XRay Report ---
CHEST 2 VIEWS INDICATION / CLINICAL INFORMATION: chest pain. COMPARISON: 05/27/2022 FINDINGS: SUPPORT DEVICES: None. HEART / MEDIASTINUM: No significant abnormality. LUNGS / PLEURA: No significant pulmonary or pleural abnormality. No pneumothorax. ADDITIONAL FINDINGS: No significant additional findings. IMPRESSION: 1. No acute findings. Signer Name: Jakub Reyna Jr, MD Signed: 06/26/2022 8:34 AM Workstation Name: [id number]
[2022-06-26 08:53] LABS: Alanine Aminotransferase 12 units/L (7-56); Albumin 4.5 g/dL (3.9-5); BUN/Creatinine Ratio 16; Blood Urea Nitrogen 16 mg/dL (7-17); Calcium 8.9 mg/dL (8.4-10.2); Hemolysis Index 9
--- NOTE | 2022-06-26 10:39 | Event Note ---
Date: 06/26/22 Came to room multiple times to examine and evaluate patient. Patient not in room. As per nursing staff, patient in waiting room, refusing to stay in room for examination. Patient therefore discharged AMA/left without being seen
--- NOTE | 2022-06-28 18:10 | Electrocardiograph Report ---
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
== END 2022-06-26 09:46 | disposition left against medical advice (07) ==
LOC: ED 07:21
DX: R07.89 Other chest pain (principal); Z53.21 Procedure and treatment not carried out due to patient leaving prior to being seen by health care provider
CPT/HCPCS: 36415; 71046; 80053; 84484; 85025; 93005

== ENCOUNTER 2022-06-28 10:03 | Emergency (ER) | payer SELFPAY ==
--- NOTE | 2022-06-28 12:35 | Emergency Department Report ---
Minor Respiratory - HPI Stated Complaint: CHEST AND HEART PAIN Time Seen by Provider: 06/28/22 12:14 Duration: 5 Days Pain Location: Chest Minor Respiratory: Yes Shortness of Breath, No Rhinorrhea, No Sore Throat, No Able to Tolerate Fluids, No Ear Pain, No Cough, No Sick Contacts, No Hemoptysis, No Chest Pain, No Fever Other History: 36 yo comes to ER with SOB. Was here the other day - and LWBS. No cp. no fever. no chills. no purulent. Prior ER visit resulted noted ED Review of Systems ROS: Stated complaint: CHEST AND HEART PAIN Other details as noted in HPI Comment: All other systems reviewed and negative ED Past Medical Hx - Past Medical History Previous Medical History?: Yes Hx Psychiatric Treatment: Yes (anxiety, depression) Hx Asthma: Yes Additional medical history: scleroderma, raynaurd's decision - Surgical History Past Surgical History?: Yes Additional Surgical History: septoplasty - Family History Family history: no significant - Social History Smoking Status: Current Every Day Smoker Substance Use Type: None - Medications Home Medications: Home Medications Medication Instructions Recorded Confirmed Last Taken Type Albuterol Sulfate [Proventil Hfa] 1 - 2 puff IH Q4H PRN #1 inh 05/18/22 Unknown Rx Budesonide/Formoterol Fumarate 1 - 2 puff IH Q6H PRN #1 inh 05/18/22 Unknown Rx [Symbicort 160-4.5 Mcg Inhaler] clonazePAM [KlonoPIN] 0.5 mg PO BID PRN #12 tab 05/18/22 Unknown Rx Albuterol Mdi (or & Nicu Only) 2 puff IH QID PRN #8.5 gram 06/05/22 Unknown Rx [ProAir HFA Inhaler] Fluticasone [Flonase] 1 spray NS QDAY #1 bottle 06/05/22 Unknown Rx Ondansetron [Zofran Odt] 4 mg PO Q8HR PRN #12 tab.rapdis 06/05/22 Unknown Rx Albuterol Mdi (or & Nicu Only) 2 puff IH QID PRN #1 inhalation 06/22/22 Unknown Rx [ProAir HFA Inhaler] Amoxicillin/K Clav Tab [Augmentin 1 tab PO Q12HR #20 tab 06/22/22 Unknown Rx 875MG TAB] Ketorolac [Toradol] 10 mg PO Q6H PRN #15 tablet 06/22/22 Unknown Rx Montelukast [Singulair] 10 mg PO QPM #14 tablet 06/22/22 Unknown Rx predniSONE [Deltasone] 50 mg PO QDAY #5 tab 06/22/22 Unknown Rx Minor Respiratory Exam - Exam General: Vital signs noted. No distress. Alert and acting appropriately. HEENT: Yes Moist Mucous Membranes, No Pharyngeal Erythema, No Pharyngeal Exudates, No Rhinorrhea, No Conjuctival Injection, No Frontal Tenderness, No Maxillary Tenderness Ear: Neither TM Bulge, Neither TM Erythema, Neither EAC Pain, Neither EAC Discharge Neck: Yes Supple, No Adenopathy Lungs: Yes Good Air Exchange, No Wheezes, No Ronchi, No Stridor, No Cough, No Labored Respirations, No Retractions, No Use of Accessory Muscles, No Other Abnormal Lung Sounds Heart: Yes Regular, No Murmur Abdomen: Yes Normal Bowel Sounds, No Tenderness, No Peritoneal Signs Skin: No Rash, No Edema Neurologic: Alert and oriented, no deficits. Musculoskeletal: Unremarkable. ED Medical Decision Making - EKG Data EKG shows normal: sinus rhythm Rate: normal - EKG Data When compared to previous EKG there are: no significant change - Medical Decision Making left ER p provider exam told RN to give up her bed VS normal as manually documented by nursing Critical care attestation.: If time is entered above; I have spent that time in minutes in the direct care of this critically ill patient, excluding procedure time. ED Disposition Clinical Impression: Asthma, chronic Disposition: LEFT WITHOUT BEING SEEN Is pt being admited?: No Does the pt Need Aspirin: No Condition: Stable Instructions: Asthma (ED)
--- NOTE | 2022-06-28 18:51 | Electrocardiograph Report ---
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
== END 2022-06-28 12:30 | disposition left against medical advice (07) ==
LOC: ED 10:03
DX: J45.909 Unspecified asthma, uncomplicated (principal); F17.200 Nicotine dependence, unspecified, uncomplicated; F41.9 Anxiety disorder, unspecified; F32.A Depression, unspecified
CPT/HCPCS: 93005; 99281

== ENCOUNTER 2022-06-30 07:56 | Emergency (ER) | payer SELFPAY | END 2022-06-30 08:06 | disposition left against medical advice (07) | LOC: ED 07:56 | DX: R51.9 Headache, unspecified (principal); Z53.21 Procedure and treatment not carried out due to patient leaving prior to being seen by health care provider ==

== ENCOUNTER 2022-06-30 20:36 | Emergency (ER) | payer SELFPAY ==
[2022-06-30] MEDS ORDERED: IBUPROFEN 600 MG TAB PO ONE (23:49)
[2022-06-30] MEDS ORDERED: ACETAMINOPHEN 500 MG TAB PO ONE (23:49)
--- NOTE | 2022-07-01 00:20 | Emergency Department Report ---
ED Extremity Problem HPI - General Chief complaint: Extremity Problem,Nontraumatic Stated complaint: FLUID BUILD UP/FEET Source: patient Mode of arrival: Ambulatory Limitations: No Limitations - History of Present Illness Initial comments: Patient is a 36-year-old -German female with a history of anxiety, depression and asthma who presents to the ED with complaint of persistent bilateral lower extremity pain and swelling especially in the ankles and feet for the last 12 months, worse in the last 3 days. Patient states that she is on her feet most of the time walking and at the end of the day bilateral feet and ankles get swollen. Patient states that in the last 3 days the pain has been constant and persistent. Patient also states that she used to take Lasix for bilateral lower extremity swelling but ran out of the medication about a year ago. Patient denies fall, traumatic injury, fever, chills, chest pain, shortness of breath, low back pain, nausea and vomiting, numbness and tingling or weakness of lower extremities bilaterally. MD Complaint: extremity pain (Bilateral foot and ankle pain), extremity swelling, joint swelling (bilateral foot and ankle swelling an dpain), joint paint -: Gradual, year(s) (1) Location: bilateral lower extremity History of Same: Yes (chronic) -: Yes arthralgia Radiation: none Severity scale (0 -10): 7 Quality: aching, sharp Consistency: constant Improves with: nothing Worsens with: weight bearing, walking Associated Symptoms: denies other symptoms, arthralgias. denies: chest pain, shortness of breath, myalgias, rash - Related Data Previous Rx's Medication Instructions Recorded Last Taken Type Albuterol Sulfate [Proventil Hfa] 1 - 2 puff IH Q4H PRN #1 inh 05/18/22 Unknown Rx Budesonide/Formoterol Fumarate 1 - 2 puff IH Q6H PRN #1 inh 05/18/22 Unknown Rx [Symbicort 160-4.5 Mcg Inhaler] clonazePAM [KlonoPIN] 0.5 mg PO BID PRN #12 tab 05/18/22 Unknown Rx Albuterol Mdi (or & Nicu Only) 2 puff IH QID PRN #8.5 gram 06/05/22 Unknown Rx [ProAir HFA Inhaler] Fluticasone [Flonase] 1 spray NS QDAY #1 bottle 06/05/22 Unknown Rx Ondansetron [Zofran Odt] 4 mg PO Q8HR PRN #12 tab.rapdis 06/05/22 Unknown Rx Albuterol Mdi (or & Nicu Only) 2 puff IH QID PRN #1 inhalation 06/22/22 Unknown Rx [ProAir HFA Inhaler] Amoxicillin/K Clav Tab [Augmentin 1 tab PO Q12HR #20 tab 06/22/22 Unknown Rx 875MG TAB] Ketorolac [Toradol] 10 mg PO Q6H PRN #15 tablet 06/22/22 Unknown Rx Montelukast [Singulair] 10 mg PO QPM #14 tablet 06/22/22 Unknown Rx predniSONE [Deltasone] 50 mg PO QDAY #5 tab 06/22/22 Unknown Rx Cyclobenzaprine [Flexeril] 10 mg PO TID PRN #21 tab 07/01/22 Unknown Rx Ibuprofen [Motrin] 800 mg PO Q8HR PRN #30 tablet 07/01/22 Unknown Rx Allergies Allergy/AdvReac Type Severity Reaction Status Date / Time cortisone Allergy Unknown Verified 06/24/22 22:57 ED Review of Systems ROS: Stated complaint: FLUID BUILD UP/FEET Other details as noted in HPI Constitutional: denies: chills, fever Eyes: denies: eye pain, eye discharge, vision change ENT: denies: ear pain, throat pain Respiratory: denies: cough, shortness of breath, wheezing Cardiovascular: denies: chest pain, palpitations Endocrine: no symptoms reported Gastrointestinal: denies: abdominal pain, nausea, vomiting, diarrhea Genitourinary: denies: urgency, dysuria, discharge Musculoskeletal: joint swelling, arthralgia (bilateral ankle and foot pain, swelling). denies: back pain Skin: denies: rash, lesions Neurological: denies: headache, weakness, paresthesias Psychiatric: denies: anxiety, depression Hematological/Lymphatic: denies: easy bleeding, easy bruising ED Past Medical Hx - Past Medical History Hx Psychiatric Treatment: Yes (anxiety, depression) Hx Asthma: Yes Additional medical history: scleroderma, raynaurd's decision - Surgical History Additional Surgical History: septoplasty - Social History Smoking Status: Current Every Day Smoker Substance Use Type: None - Medications Home Medications: Home Medications Medication Instructions Recorded Confirmed Last Taken Type Albuterol Sulfate [Proventil Hfa] 1 - 2 puff IH Q4H PRN #1 inh 05/18/22 Unknown Rx Budesonide/Formoterol Fumarate 1 - 2 puff IH Q6H PRN #1 inh 05/18/22 Unknown Rx [Symbicort 160-4.5 Mcg Inhaler] clonazePAM [KlonoPIN] 0.5 mg PO BID PRN #12 tab 05/18/22 Unknown Rx Albuterol Mdi (or & Nicu Only) 2 puff IH QID PRN #8.5 gram 06/05/22 Unknown Rx [ProAir HFA Inhaler] Fluticasone [Flonase] 1 spray NS QDAY #1 bottle 06/05/22 Unknown Rx Ondansetron [Zofran Odt] 4 mg PO Q8HR PRN #12 tab.rapdis 06/05/22 Unknown Rx Albuterol Mdi (or & Nicu Only) 2 puff IH QID PRN #1 inhalation 06/22/22 Unknown Rx [ProAir HFA Inhaler] Amoxicillin/K Clav Tab [Augmentin 1 tab PO Q12HR #20 tab 06/22/22 Unknown Rx 875MG TAB] Ketorolac [Toradol] 10 mg PO Q6H PRN #15 tablet 06/22/22 Unknown Rx Montelukast [Singulair] 10 mg PO QPM #14 tablet 06/22/22 Unknown Rx predniSONE [Deltasone] 50 mg PO QDAY #5 tab 06/22/22 Unknown Rx Cyclobenzaprine [Flexeril] 10 mg PO TID PRN #21 tab 07/01/22 Unknown Rx Ibuprofen [Motrin] 800 mg PO Q8HR PRN #30 tablet 07/01/22 Unknown Rx ED Physical Exam - General Limitations: No Limitations General appearance: alert, in no apparent distress - Head Head exam: Present: atraumatic, normocephalic, normal inspection - Eye Eye exam: Present: normal appearance, PERRL, EOMI Pupils: Present: normal accommodation - ENT ENT exam: Present: normal exam, normal orophraynx, mucous membranes moist, TM's normal bilaterally, normal external ear exam - Neck Neck exam: Present: normal inspection, full ROM. Absent: tenderness - Respiratory Respiratory exam: Present: normal lung sounds bilaterally. Absent: respiratory distress, wheezes, rales, rhonchi, chest wall tenderness, accessory muscle use, decreased breath sounds, prolonged expiratory - Cardiovascular Cardiovascular Exam: Present: regular rate, normal rhythm, normal heart sounds. Absent: systolic murmur, diastolic murmur, rubs, gallop - GI/Abdominal GI/Abdominal exam: Present: soft, normal bowel sounds. Absent: tenderness, guarding, rigid, hyperactive bowel sounds, hypoactive bowel sounds, organomegaly, mass - Extremities Exam Extremities exam: Present: normal inspection, full ROM, tenderness (palpable bilateral foot and ankle tenderness and mild swelling), normal capillary refill, joint swelling. Absent: pedal edema, calf tenderness - Back Exam Back exam: Present: normal inspection, full ROM. Absent: tenderness, CVA tenderness (R), CVA tenderness (L), muscle spasm, paraspinal tenderness, vertebral tenderness - Neurological Exam Neurological exam: Present: alert, oriented X3, CN II-XII intact, normal gait, reflexes normal - Psychiatric Psychiatric exam: Present: normal affect, normal mood - Skin Skin exam: Present: warm, dry, intact, normal color. Absent: rash ED Medical Decision Making - Medical Decision Making This is a 36-year-old -German female with a history of anxiety, depression and asthma who presents to the ED with complaint of persistent bilateral lower extremity pain and swelling especially in the ankles and feet for the last 12 months, worse in the last 3 days. Patient states that she is on her feet most of the time walking and at the end of the day bilateral feet and ankles get swollen. Patient states that in the last 3 days the pain has been constant and persistent. Patient also states that she used to take Lasix for bilateral lower extremity swelling but ran out of the medication about a year ago. In the ED, patient is alert and oriented x3 and is not in any distress. Patient was treated for pain in the ED. Patient was thereafter discharged home on medications and advised to follow-up with her primary care physician in 7 to 10 days for reevaluation. Patient advised to return to the ED immediately if symptoms get worse. - Differential Diagnosis Muscle strain; muscle spasm; tendinitis; osteoarthritis; chronic pain Critical care attestation.: If time is entered above; I have spent that time in minutes in the direct care of this critically ill patient, excluding procedure time. ED Disposition Clinical Impression: Chronic pain syndrome, Chronic pain of both feet Muscle strain of ankle Qualifiers: Encounter type: initial encounter Laterality: unspecified laterality Qualified Code(s): S96.919A - Strain of unspecified muscle and tendon at ankle and foot level, unspecified foot, initial encounter Disposition: HOME / SELF CARE / HOMELESS Is pt being admited?: No Does the pt Need Aspirin: No Condition: Stable Instructions: Muscle Strain, [id number], Chronic Pain, Adult, Pain Medicine Instructions, [id number] Additional Instructions: Take medication with food, drink plenty of fluids, follow-up with your primary care physician in 7 to 10 days for reevaluation. Return to the ED immediately if symptoms get worse. Prescriptions: Cyclobenzaprine [Flexeril] 10 mg PO TID PRN #21 tab PRN Reason: Muscle Spasm Ibuprofen [Motrin] 800 mg PO Q8HR PRN #30 tablet PRN Reason: Pain , Severe (7-10) Referrals: SHABBIR HORTA MD [Primary Care Provider] - 7-10 days Time of Disposition: 00:24 Print Language: SWISS
[2022-07-01 02:39] VITALS: BP 138/78
== END 2022-07-01 02:35 | disposition home or self-care (01) ==
LOC: ED 20:36
DX: S96.919A Strain of unspecified muscle and tendon at ankle and foot level, unspecified foot, initial encounter (principal); G89.4 Chronic pain syndrome; F17.200 Nicotine dependence, unspecified, uncomplicated; F41.9 Anxiety disorder, unspecified; J45.909 Unspecified asthma, uncomplicated; X58.XXXA Exposure to other specified factors, initial encounter; Y93.89 Activity, other specified; Y92.89 Other specified places as the place of occurrence of the external cause; Y99.8 Other external cause status
CPT/HCPCS: 99282

== ENCOUNTER 2022-07-03 12:17 | Emergency (ER) | payer SELFPAY ==
[2022-07-03] MEDS ORDERED: predniSONE 20 MG TAB PO ONE (21:45)
[2022-07-03] MEDS ORDERED: ACETAMINOPHEN 500 MG TAB PO ONE (21:45)
[2022-07-03] MEDS ORDERED: IBUPROFEN 600 MG TAB PO ONE (21:45)
--- NOTE | 2022-07-03 23:39 | Emergency Department Report ---
ED Extremity Problem HPI - General Chief complaint: Extremity Problem,Nontraumatic Stated complaint: swollen feet and legs Source: patient Mode of arrival: Ambulatory Limitations: No Limitations - History of Present Illness Initial comments: Patient is a 37-year-old -[place] female with a history of asthma, anxiety and depression and chronic bilateral lower extremity pain who presents to the ED with acute exacerbation of her chronic lower extremity pain characterized by bilateral ankle, foot and lower leg pain and swelling for the last 2 weeks, worse in the last 5 days. Patient states that she is on her feet most of the time, walking around and that at the end of the day the leg pain and the swelling worsens each night. Patient states that she has been taking [id number] medications with no relief. Patient denies dizziness, syncope, chest pain, shortness of breath, change in vision, fever, chills, fall, heavy lifting, numbness and tingling or weakness of lower extremities bilaterally. MD Complaint: extremity pain (bilateral LE pain and swelling), extremity swelling (Bilateral foot, ankle and leg sweling and pain) -: Gradual, month(s) (3) Location: bilateral lower extremity (pain and swelling) History of Same: Yes -: Yes arthralgia, No fever, No associated dyspnea, No associated chest pain Radiation: distal Severity scale (0 -10): 8 Quality: aching, sharp, constant Consistency: constant Improves with: nothing Worsens with: weight bearing, walking, palpation Associated Symptoms: denies other symptoms, arthralgias. denies: chest pain, shortness of breath, fever, myalgias - Related Data Previous Rx's Medication Instructions Recorded Last Taken Type Albuterol Sulfate [Proventil Hfa] 1 - 2 puff IH Q4H PRN #1 inh 05/18/22 Unknown Rx Budesonide/Formoterol Fumarate 1 - 2 puff IH Q6H PRN #1 inh 05/18/22 Unknown Rx [Symbicort 160-4.5 Mcg Inhaler] clonazePAM [KlonoPIN] 0.5 mg PO BID PRN #12 tab 05/18/22 Unknown Rx Albuterol Mdi (or & Nicu Only) 2 puff IH QID PRN #8.5 gram 06/05/22 Unknown Rx [ProAir HFA Inhaler] Fluticasone [Flonase] 1 spray NS QDAY #1 bottle 06/05/22 Unknown Rx Ondansetron [Zofran Odt] 4 mg PO Q8HR PRN #12 tab.rapdis 06/05/22 Unknown Rx Albuterol Mdi (or & Nicu Only) 2 puff IH QID PRN #1 inhalation 06/22/22 Unknown Rx [ProAir HFA Inhaler] Amoxicillin/K Clav Tab [Augmentin 1 tab PO Q12HR #20 tab 06/22/22 Unknown Rx 875MG TAB] Ketorolac [Toradol] 10 mg PO Q6H PRN #15 tablet 06/22/22 Unknown Rx Montelukast [Singulair] 10 mg PO QPM #14 tablet 06/22/22 Unknown Rx Ibuprofen [Motrin] 800 mg PO Q8HR PRN #30 tablet 07/01/22 Unknown Rx Cyclobenzaprine [Flexeril 10 MG 10 mg PO TID PRN #21 tab 07/04/22 Unknown Rx TAB] predniSONE [Deltasone] 50 mg PO QDAY #5 tab 07/04/22 Unknown Rx Allergies Allergy/AdvReac Type Severity Reaction Status Date / Time cortisone Allergy Unknown Verified 06/24/22 22:57 ED Review of Systems ROS: Stated complaint: swollen feet and legs Other details as noted in HPI Constitutional: denies: chills, fever Eyes: denies: eye pain, eye discharge, vision change ENT: denies: ear pain, throat pain Respiratory: denies: cough, shortness of breath, wheezing Cardiovascular: denies: chest pain, palpitations Endocrine: no symptoms reported Gastrointestinal: denies: abdominal pain, nausea, diarrhea Genitourinary: denies: urgency, dysuria, discharge Musculoskeletal: joint swelling (Bilateral ankle and foot as well as lower leg swelling), arthralgia (Bilateral lower extremity pain and swelling), myalgia. denies: back pain Skin: denies: rash, lesions Neurological: denies: headache, weakness, paresthesias Psychiatric: denies: anxiety, depression Hematological/Lymphatic: denies: easy bleeding, easy bruising ED Past Medical Hx - Past Medical History Hx Psychiatric Treatment: Yes (anxiety) Hx Asthma: Yes Additional medical history: scleroderma, raynaurd's decision - Surgical History Additional Surgical History: septoplasty - Social History Smoking Status: Never Smoker - Medications Home Medications: Home Medications Medication Instructions Recorded Confirmed Last Taken Type Albuterol Sulfate [Proventil Hfa] 1 - 2 puff IH Q4H PRN #1 inh 05/18/22 Unknown Rx Budesonide/Formoterol Fumarate 1 - 2 puff IH Q6H PRN #1 inh 05/18/22 Unknown Rx [Symbicort 160-4.5 Mcg Inhaler] clonazePAM [KlonoPIN] 0.5 mg PO BID PRN #12 tab 05/18/22 Unknown Rx Albuterol Mdi (or & Nicu Only) 2 puff IH QID PRN #8.5 gram 06/05/22 Unknown Rx [ProAir HFA Inhaler] Fluticasone [Flonase] 1 spray NS QDAY #1 bottle 06/05/22 Unknown Rx Ondansetron [Zofran Odt] 4 mg PO Q8HR PRN #12 tab.rapdis 06/05/22 Unknown Rx Albuterol Mdi (or & Nicu Only) 2 puff IH QID PRN #1 inhalation 06/22/22 Unknown Rx [ProAir HFA Inhaler] Amoxicillin/K Clav Tab [Augmentin 1 tab PO Q12HR #20 tab 06/22/22 Unknown Rx 875MG TAB] Ketorolac [Toradol] 10 mg PO Q6H PRN #15 tablet 06/22/22 Unknown Rx Montelukast [Singulair] 10 mg PO QPM #14 tablet 06/22/22 Unknown Rx Ibuprofen [Motrin] 800 mg PO Q8HR PRN #30 tablet 07/01/22 Unknown Rx Cyclobenzaprine [Flexeril 10 MG 10 mg PO TID PRN #21 tab 07/04/22 Unknown Rx TAB] predniSONE [Deltasone] 50 mg PO QDAY #5 tab 07/04/22 Unknown Rx ED Physical Exam - General Limitations: No Limitations General appearance: alert, in no apparent distress - Head Head exam: Present: atraumatic, normocephalic, normal inspection - Eye Eye exam: Present: normal appearance, PERRL, EOMI Pupils: Present: normal accommodation - ENT ENT exam: Present: normal exam, normal orophraynx, mucous membranes moist, TM's normal bilaterally, normal external ear exam - Neck Neck exam: Present: normal inspection, full ROM. Absent: tenderness - Respiratory Respiratory exam: Present: normal lung sounds bilaterally. Absent: respiratory distress, wheezes, rales, rhonchi, chest wall tenderness, accessory muscle use, decreased breath sounds, prolonged expiratory - Cardiovascular Cardiovascular Exam: Present: regular rate, normal rhythm, normal heart sounds. Absent: systolic murmur, diastolic murmur, rubs, gallop - GI/Abdominal GI/Abdominal exam: Present: soft, normal bowel sounds. Absent: tenderness, guarding, rebound, hyperactive bowel sounds, hypoactive bowel sounds, mass, bruit, pulsatile mass - Extremities Exam Extremities exam: Present: normal inspection, full ROM, tenderness (Palpable bilateral lower extremity tenderness and mild swelling), normal capillary refill, joint swelling (Palpable bilateral diffuse lower leg, ankle and foot tenderness and swelling), calf tenderness (Mild bilateral calf tenderness and swelling). Absent: pedal edema - Back Exam Back exam: Present: normal inspection, full ROM. Absent: tenderness, CVA tenderness (R), CVA tenderness (L), muscle spasm, paraspinal tenderness, vertebral tenderness - Neurological Exam Neurological exam: Present: alert, oriented X3, CN II-XII intact, normal gait, reflexes normal - Psychiatric Psychiatric exam: Present: normal affect, normal mood - Skin Skin exam: Present: warm, dry, intact, normal color. Absent: rash ED Course Vital Signs 07/03/22 13:12 Temperature 98.9 F Pulse Rate 57 L Respiratory 14 Rate Blood Pressure 126/80 O2 Sat by Pulse 100 Oximetry ED Medical Decision Making - Radiology Data Radiology results: report reviewed, image reviewed [facility] [address] [place] [address] Vascular Lab Report Signed Patient: CORWIN BELLAMY MR#: [id number] : 1985 Acct:[id number] Age/Sex: 37 / F ADM Date: 07/03/22 Loc: ED Attending Dr: Ordering Physician: JERROD VALENZUELA Date of Service: 07/03/22 Procedure(s): VL venous duplex LE BILAT Accession Number(s): [id number] cc: JERROD VALENZUELA DUPLEX DOPPLER LOWER EXTREMITY VEINS, BILATERAL INDICATION / CLINICAL INFORMATION: Bilateral LE swelling. TECHNIQUE: Duplex doppler imaging was performed through the veins of both lower extremities using venous compression and other maneuvers. COMPARISON: None available. FINDINGS: RIGHT COMMON FEMORAL VEIN: Negative. RIGHT FEMORAL VEIN: Negative. RIGHT POPLITEAL VEIN: Negative. RIGHT CALF VEINS: Negative. LEFT COMMON FEMORAL VEIN: Negative. LEFT FEMORAL VEIN: Negative. LEFT POPLITEAL VEIN: Negative. LEFT CALF VEINS: Negative. ADDITIONAL FINDINGS: None. IMPRESSION: 1. No sonographic evidence for DVT in either lower extremity. Signer Name: Ricardo Vee MD Signed: 07/04/2022 12:50 AM Workstation Name: [id number] Transcribed By: CHATO Dictated By: RICARDO VEE MD Electronically Authenticated By: RICARDO VEE MD Signed Date/Time: 07/04/2249 DD/ TD/TT: - Medical Decision Making This is a 37-year-old -[place] female with a history of asthma, anxiety and depression and chronic bilateral lower extremity pain who presents to the ED with acute exacerbation of her chronic lower extremity pain characterized by bilateral ankle, foot and lower leg pain and swelling for the last 2 weeks, worse in the last 5 days. Patient states that she is on her feet most of the time, walking around and that at the end of the day the leg pain and the swelling worsens each night. Patient states that she has been taking [id number] medications with no relief. In the ED, patient is alert and oriented x3 and is not in any distress. Patient is hemodynamically stable. Patient was treated for pain in the ED. Bilateral lower extremity Doppler ultrasound showed no sonographic evidence of DVT. Patient was therefore discharged home on medications and advised to follow-up with her primary care physician in 5 to 7 days for reevaluation or return to the ED immediately if sym ptoms get worse. - Differential Diagnosis muscle spasm; muscle strain; chronic pain Critical care attestation.: If time is entered above; I have spent that time in minutes in the direct care of this critically ill patient, excluding procedure time. ED Disposition Clinical Impression: Bilateral lower extremity pain Muscle spasms of lower extremity Qualifiers: Laterality: bilateral Qualified Code(s): M62.838 - Other muscle spasm Chronic pain of lower extremity Qualifiers: Laterality: bilateral Qualified Code(s): M79.604 - Pain in right leg; M79.605 - Pain in left leg; G89.29 - Other chronic pain Disposition: 01 HOME / SELF CARE / HOMELESS Is pt being admited?: No Does the pt Need Aspirin: No Condition: Stable Instructions: Muscle Cramps and Spasms, [id number], Leg Cramps Additional Instructions: The bilateral lower extremity Doppler ultrasound showed normal sonographic evidence of DVT. Therefore your pain is likely due to muscle spasm muscle strain. Therefore take medications for pain, drink plenty of fluids and follow- up with your primary care physician in 7 to 10 days for reevaluation. Return to the ED immediately if symptoms get worse. Prescriptions: predniSONE [Deltasone] 50 mg PO QDAY #5 tab Cyclobenzaprine [Flexeril 10 MG TAB] 10 mg PO TID PRN #21 tab PRN Reason: Muscle Spasm Referrals: [facility] [Provider Group] - 7-10 days Time of Disposition: 23:39 Print Language: SWAZI
--- NOTE | 2022-07-04 00:54 | Vascular Lab Report ---
DUPLEX DOPPLER LOWER EXTREMITY VEINS, BILATERAL INDICATION / CLINICAL INFORMATION: Bilateral LE swelling. TECHNIQUE: Duplex doppler imaging was performed through the veins of both lower extremities using rosales ous compression and other maneuvers. COMPARISON: None available. FINDINGS: RIGHT COMMON FEMORAL VEIN: Negative. RIGHT FEMORAL VEIN: Negative. RIGHT POPLITEAL VEIN: Negative. RIGHT CALF VEINS: Negative. LEFT COMMON FEMORAL VEIN: Negative. LEFT FEMORAL VEIN: Negative. LEFT POPLITEAL VEIN: Negative. LEFT CALF VEINS: Negative. ADDITIONAL FINDINGS: None. IMPRESSION: 1. No sonographic evidence for DVT in either lower extremity. Signer Name: Shant Escobedo MD Signed: 07/04/2022 12:50 AM Workstation Name: [id number]
[2022-07-04 02:48] VITALS: BP 146/88
== END 2022-07-04 02:48 | disposition home or self-care (01) ==
LOC: ED 12:17
DX: M79.662 Pain in left lower leg (principal); M79.661 Pain in right lower leg; M62.838 Other muscle spasm; G89.29 Other chronic pain; J45.909 Unspecified asthma, uncomplicated; Z91.09 Other allergy status, other than to drugs and biological substances
CPT/HCPCS: 93970; 99283

== ENCOUNTER 2022-07-18 00:15 | Emergency (ER) | payer SELFPAY | END 2022-07-18 05:00 | disposition left against medical advice (07) | LOC: ED 00:15 | DX: R07.89 Other chest pain (principal); Z53.21 Procedure and treatment not carried out due to patient leaving prior to being seen by health care provider ==